=== PATIENT | female | born 1985 | race Caucasian/White ===

== ENCOUNTER → 2018-05-29 | Outpatient (REF) | payer BC | LOC: M SFHCLERA 12:02 | PROVIDERS: ATTEND Nurse Practitioner Family | DX: J35.8 Other chronic diseases of tonsils and adenoids (principal) ==

== ENCOUNTER → 2022-01-24 | Outpatient (CLI) | payer BC | LOC: M WHC 08:53 → MERGE 09:00 | PROVIDERS: ATTEND Nurse Practitioner Family | DX: Z80.3 Family history of malignant neoplasm of breast (principal); Z12.31 Encounter for screening mammogram for malignant neoplasm of breast ==

== ENCOUNTER → 2022-01-30 | Outpatient (CLI) | payer BC | LOC: M WHC 10:31 | PROVIDERS: ATTEND Nurse Practitioner Family | DX: R92.2 Inconclusive mammogram (principal); N63.21 Unspecified lump in the left breast, upper outer quadrant ==

== ENCOUNTER → 2022-02-26 | Outpatient (CLI) | payer BC, OTHER, SELFPAY ==
[~2022-02-26] MED LIST: **SFHN** LIDOCAINE 1% MDV 20ML VIAL ONE; **SFHN** SODIUM BICARBONATE 8.4% 10MEQ 10ML VIAL ONE
[2022-02-26 10:50] VITALS: BP 98/76
== END ==
LOC: M WHCPRO 09:22
PROVIDERS: ATTEND Nurse Practitioner Family
DX: R92.8 Other abnormal and inconclusive findings on diagnostic imaging of breast (principal); N63.23 Unspecified lump in the left breast, lower outer quadrant

== ENCOUNTER → 2022-08-22 | Outpatient (CLI) | payer OTHER | LOC: M WHC 10:28 | PROVIDERS: ATTEND Nurse Practitioner Family | DX: N63.23 Unspecified lump in the left breast, lower outer quadrant (principal) ==

== ENCOUNTER → 2024-03-05 | Outpatient (CLI) | payer OTHER | LOC: M WHC 12:34 | PROVIDERS: ATTEND Nurse Practitioner Family | DX: Z12.31 Encounter for screening mammogram for malignant neoplasm of breast (principal); Z80.3 Family history of malignant neoplasm of breast; R92.333 Mammographic heterogeneous density, bilateral breasts ==